=== PATIENT | male | born 1935 | race Two or more races ===

== ENCOUNTER 2020-06-17 13:18 | Outpatient (CLI) | payer MEDICARE, OTHER ==
[~2020-06-17] VITALS: Ht 157.5 cm; Wt 54.9 kg
[~2020-06-17 13:18] MED LIST: ASPIRIN81 MG ORAL; ATORVASTATIN CA10 MG ORAL; TENORMIN25 MG ORAL; VITAMIN D400 INTLU ORAL
[2020-06-17 13:54] VITALS: BP 133/59
--- NOTE | 2020-06-17 17:45 | Consultation ---
DATE OF CONSULTATION: 06/17/2020 CHIEF COMPLAINT: Referral for rectal bleeding. PAST MEDICAL HISTORY: 1. Hypertension. 2. Anxiety. 3. Hypercholesterolemia. PAST SURGICAL HISTORY: Cataract surgery and hernia surgery. MEDICATIONS: Aspirin, Benicar, Lipitor, vitamin D. FAMILY HISTORY: Noncontributory. SOCIAL HISTORY: The patient denies any tobacco, alcohol, or drug abuse. ALLERGIES: No known drug allergies. PHYSICAL EXAMINATION: VITAL SIGNS: Temperature 98.1, blood pressure 130/59, pulse 71, respirations 20. HEENT: Normocephalic and atraumatic. Sclerae anicteric. NECK: Supple. No evidence of obvious lymphadenopathy. CARDIOVASCULAR: Regular rate and rhythm. Plus S1 and S2. LUNGS: Clear to auscultation bilaterally. ABDOMEN: Positive bowel sounds. Soft and nontender. No rebound. No guarding. No peritoneal sign. EXTREMITIES: No cyanosis, no clubbing, no edema. ASSESSMENT AND PLAN: This is an 85-year-old male with last colonoscopy was 10 years ago, had some episodes of rectal bleeding, was referred for a colonoscopy. The risks and benefits of procedure was explained to the patient, he agreed. We will schedule when authorization is obtained. I want to thank Dr. Marco A Merino, for this kind referral. Marco A Laureano M.D. DR: Raymon JOB#: [id number] CC: Marco A Merino M.D.; Fax#: [phone]
== END 2020-06-17 15:18 | disposition home or self-care (01) ==
LOC: PAN 13:18
DX: K62.5 Hemorrhage of anus and rectum (principal); I10 Essential (primary) hypertension; F41.9 Anxiety disorder, unspecified; E78.00 Pure hypercholesterolemia, unspecified; Z79.82 Long term (current) use of aspirin; Z79.899 Other long term (current) drug therapy
CPT/HCPCS: G0463

== ENCOUNTER 2020-07-08 12:52 | Outpatient (CLI) | payer MEDICARE, OTHER ==
[~2020-07-08 12:52] MED LIST changes: +ASPIRIN EC81 MG ORAL; +ATENOLOL25 MG ORAL; +ATORVASTATIN CA20 MG ORAL; +FISH OIL CAP1000 MG ORAL
--- NOTE | 2020-07-08 15:36 | General Progress Note ---
Subjective ROS Limited/Unobtainable: Yes Allergies: Coded Allergies: NO KNOWN ALLERGIES (Unverified Allergy, Unknown, 06/30/20) Objective General Appearance: alert EENT: normal ENT inspection Neck: normal alignment Cardiovascular: normal rate Respiratory/Chest: chest wall non-tender Abdomen: normal bowel sounds, non tender, soft Extremities: non-tender Assessment/Plan Assessment/Plan: post colonoscopy one polyp hemorrhoids no need for another colonoscopy Marco A Laureano MD Jul 08, 2020 15:36
== END 2020-07-08 14:52 | disposition home or self-care (01) ==
LOC: PAN 12:52
DX: K63.5 Polyp of colon (principal); K64.9 Unspecified hemorrhoids
CPT/HCPCS: 99212